=== PATIENT | male | born 1995 | race African-American/Black ===

== ENCOUNTER 2023-11-20 22:41 | Emergency (ER) | payer MEDICAID ==
[~2023-11-20] VITALS: Ht 177.8 cm; Wt 86.5 kg
[2023-11-20 22:57] VITALS: BP 161/97; PULSE 120; RESP 18; O2SAT 100
[2023-11-20 23:49] LABS: ACETAMINOPHEN < 2 ug/mL (10-30); ALANINE AMINOTRANSFERASE 50 IU/L (10-49); ALBUMIN 4.6 g/dL (3.2-4.8); AMMONIA 68 uMol/L (<32); ASPARTATE AMINOTRANSFERASE 27 IU/L (<34); BILIRUBIN TOTAL 0.5 mg/dL (0.1-1.0); CALCIUM 9.5 mg/dL (8.7-10.4); CARBON DIOXIDE 26 mEq/L (21-32); CHLORIDE 102 mEq/L (98-107); CREATINE KINASE 599 IU/L (46-171); CREATININE 0.9 mg/dL (0.6-1.3); GLUCOSE 85 mg/dL (70-105); POTASSIUM 3.6 mEq/L (3.5-5.1); PROTEIN TOTAL 7.9 g/dL (6.0-8.3); SODIUM 138 mEq/L (136-145); UREA NITROGEN BLOOD 10 mg/dL (9-23)
[2023-11-20 23:57] LABS: BASOPHILS % 0.5 % (0.0-2.0); EOSINOPHILS % 2.3 % (0.0-5.0); HEMATOCRIT. 42.1 % (42.0-52.0); HEMOGLOBIN. 13.7 g/dL (14.0-18.0); LYMPHOCYTES % 32.4 % (20.0-50.0); MEAN CORPUSCULAR HEMOGLOBIN 27.1 pg (28.0-32.0); MEAN CORPUSCULAR HGB CONC 32.6 g/dL (31.0-37.0); MEAN CORPUSCULAR VOLUME 83.1 fL (80.0-94.0); MEAN PLATELET VOLUME 7.6 fl (7.4-10.4); MONOCYTES % 10.8 % (2.0-8.0); PLATELET 295 x1000/uL (130-400); RED BLOOD CELL COUNT 5.07 mill/uL (4.7-6.1); RED CELL DISTRIBUTION WIDTH 14.1 % (11.6-14.6); WHITE BLOOD COUNT 11.1 x1000/uL (4.5-11.0)
[2023-11-21 00:13] LABS: ETHANOL BLOOD < 10 mg/dL (<10)
[2023-11-21 00:25] LABS: DIFFERENTIAL COMMENT 1
[2023-11-21] MEDS ORDERED: SODIUM CHLORIDE 0.9% 1,000 ML IV NR (02:30)
[2023-11-21] MEDS ORDERED: ACETAMINOPHEN 325MG TABLET PO NR (02:30)
[2023-11-21] MEDS: SODIUM CHLORIDE 0.9% 1,000 ML IV ONE (02:55)
== END 2023-11-21 04:06 | disposition left against medical advice (07) ==
LOC: ER 22:41
DX: E86.0 Dehydration (principal); M79.605 Pain in left leg
CPT/HCPCS: 80053; 80307; 80329; 80320; 82140; 82550; 83605; 85025; 36415; 99283; 96360; J7030; G0480